=== PATIENT | male | born 1955 | race Caucasian/White ===

== ENCOUNTER 2016-11-25 07:31 | Emergency (ER) | payer BC ==
[2016-11-25] MEDS ORDERED: 0.9 % SODIUM CHLORIDE 1,000 ML BAG IV ONE (07:40)
[2016-11-25] MEDS ORDERED: CLINDAMYCIN 600MG/50ML PREMIX 600 MG in DEXTROSE 1 BAG IV ONE (07:40)
--- NOTE | 2016-11-25 07:53 | Emergency Department Record ---
History of Present Illness - General Chief complaint: ENT Stated complaint: SORE THROAT Time Seen by Provider: 11/25/16 07:40 Source: Patient Mode of Arrival: Ambulatory Limitations: No limitations - History of Present Illness Initial comments: 60 yo male with a history of CLL presents with sore throat for 5 days. He states the pain is more of the left side. He has pain with swallowing. No NVD. No voice changes. He has some pain in the left upper neck as well. 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 Hernandez. Becky Altamirano is his oncologist. His WBC count in 2016 has been a high of 446 and a low off 100. No choking or gagging. No white patches or coating of the throat MD complaint: Sore throat Onset/Timin -: Days(s) (5) Location: Throat Severity: Moderate Severity scale (1-10): 6 Quality: Aching Consistency: Constant Improves with: None Worsens with: None Associated Symptoms: Sore throat - Related Data Home Medications Medication Instructions Recorded Confirmed Last Taken Ibrutinib [Imbruvica] 140 mg PO DAILY 11/25/16 11/25/16 11/24/16 Previous Rx's Medication Instructions Recorded Hydrocodone/Acetaminophen [[place] 0.5 - 1 tab PO TID PRN #15 tab 11/25/16 5mg/325mg] Allergies Allergy/AdvReac Type Severity Reaction Status Date / Time No Known Drug Allergies Allergy Verified 11/25/16 07:41 Travel Screening - Travel/Exposure Within Last 30 Days Have you traveled within the last 30 days?: No Review of Systems Constitutional: Reports: Chills, Night sweats, Other (Chills and some sweats but no fever). Denies: Fever, Malaise, Weakness Eyes: Denies: Eye discharge, Eye pain, Photophobia, Vision change ENT: Reports: As per HPI, Congestion, Throat pain Respiratory: Denies: Cough Cardiovascular: Denies: Chest pain, Palpitations, Syncope Endocrine: Denies: Fatigue Gastrointestinal: Denies: Abdominal pain, Diarrhea, Nausea, Vomiting Genitourinary: Denies: Dysuria, Frequency, Hematuria Musculoskeletal: Denies: Arthralgia, Back pain, Joint swelling, Myalgia, Neck pain Skin: Denies: Change in color, Rash Neurological: Denies: Headache Psychiatric: Denies: Anxiety Hematological/Lymphatic: Denies: Blood Clots, Easy bleeding, Easy bruising, Swollen glands Past Medical History - SOCIAL HISTORY Smoking Status: Never smoker Alcohol Use: None Drug Use: None - RESPIRATORY Hx Respiratory Disorders: Yes Comment:: SOB related to medications - CARDIOVASCULAR Hx Cardio Disorders: No - NEURO Hx Neuro Disorders: No - GI Hx GI Disorders: No - Hx Genitourinary Disorders: No - ENDOCRINE Hx Endocrine Disorders: No - MUSCULOSKELETAL Hx Musculoskeletal Disorders: No - PSYCH Hx Psych Problems: No - HEMATOLOGY/ONCOLOGY Hx Hematology/Oncology Disorders: Yes Hx Cancer: Yes (CLL) Hx Chemotherapy: Yes Hx Radiation Therapy: Yes Family Medical History Any Significant Family History?: No Physical Exam - General General Appearance: Alert, Oriented x3, Cooperative, No acute distress, Other ( Appears comfortable, clear voice, no strider or outward increased work of breathing) Limitations: No limitations - Head Head exam: Atraumatic, Normocephalic, Normal inspection - Eye Eye exam: Normal appearance. negative: Conjunctival injection, Periorbital swelling - ENT ENT exam: Mucous membranes moist, Normal external ear exam, TM's normal bilaterally. negative: Mucous membranes dry, Normal orophraynx Ear exam: Normal external inspection. negative: External canal tenderness Nasal Exam: Normal inspection. negative: Discharge, Sinus tenderness Mouth exam: Normal external inspection, Tongue normal Teeth exam: Normal inspection. negative: Dental caries Throat exam: Tonsillar erythema, Tonsillomegaly, L peritonsillar mass (mild swelling with erythema of the anterior tonsillar pillar, wide open posterior pharynx, normal uvula, no pus or exudate, no thrush), Other (Mild fullness to the left peritonsillar area, no mass effect, normal right side and normal uvula , no exudate, white patches or signs of thrush). negative: Normal inspection, Tonsillar exudate, R peritonsillar mass - Neck Neck exam: Normal inspection, Full ROM, Lymphadenopathy (left anterior cervical) , Tenderness (mild full ROM, soft and supple moves without limitation), Other ( No asymmentry or mass). negative: Meningismus - Respiratory Respiratory exam: Normal lung sounds bilaterally. negative: Respiratory distress - Cardiovascular Cardiovascular Exam: Normal rhythm, Normal heart sounds, Tachycardia - GI/Abdominal GI/Abdominal exam: Soft. negative: Tenderness - Rectal Rectal exam: Deferred - exam: Deferred - Extremities Extremities exam: Normal inspection, Full ROM, Normal capillary refill. negative: Tenderness - Back Back exam: Reports: Normal inspection, Full ROM. Denies: Muscle spasm, Rash noted, Tenderness - Neurological Neurological exam: Alert, Normal gait, Oriented X3, Reflexes normal - Psychiatric Psychiatric exam: Normal affect, Normal mood - Skin Skin exam: Dry, Intact, Normal color, Warm Course Vital Signs 11/25/16 07:35 Temperature 98.6 F Pulse Rate 123 H Respiratory 18 Rate Blood Pressure 128/91 Pulse Ox 95 - Reevaluation(s) Reevaluation #1: The patient was seen and examined He has mild fullness of the left peritonsillar area No pus, no definite visible abscess, no thrush, no ulcerations Labs, antibiotics and CT ordered given his risk of immune suppression 11/25/16 07:46 11/25/16 11:06 Reevaluation #2: The labs were reviewed WBC is 131 down from 134 on previous (He was 200-446 in the late summer into the fall) 11/25/16 08:37 The patient was updated on his labs 11/25/16 08:40 Reevaluation #3: CT scan reviewed. No abscess. Fullness noted in vallecula and pyriform sinus that could represent mucosal debris, Follow up imaging recommended, mixed changes in the lymph nodes. 11/25/16 09:04 The results were discussed with the patient. I offered further observation in the hospital for fluids and antibiotics through the IV. He declined. He has a clear voice, appears very comfortable. I discussed again with his immune compromised state his treatment and resolution should be monitored very closely. He understands this and my offer for continued monitoring. He will return or seek a recheck if any concerns and completely understands his risk. He is comfortable, no signs of current or impeding airway issues I simply explained to him this would be an option for him. 11/25/16 09:09 11/25/16 09:19 Reevaluation #4: Rx for clindamycin 450mg QID for 7 days called into [facility]. 11/25/16 09:26 Reevaluation #5: Vitals reviewed and improved at [place] 11/25/16 09:44 Medical Decision Making - Lab Data Result diagrams: 11/25/16 07:55 11/25/16 07:55 Disposition Disposition: Discharge (pharyngitis) Clinical Impression: Pharyngitis Qualifiers: Pharyngitis/tonsillitis etiology: unspecified etiology Qualified Code(s): J02.9 - Acute pharyngitis, unspecified Disposition: Home, Self-Care Condition: (1) Good Instructions: Pharyngitis (ED) Additional Instructions: Immediately return or seek medical attention if worse in any way Take the Clindamycin 4 times daily as directed. Call your doctor Sunday for a recheck Radiology recommends follow up as well to ensure complete resolution of today's CT findings. Prescriptions: Hydrocodone/Acetaminophen [[place] 5mg/325mg] 0.5 - 1 tab PO TID PRN #15 tab PRN Reason: Pain - General Forms: Patient Portal Access Time of Disposition: 09:22
[2016-11-25 07:58] LABS: HEMATOCRIT 44.9 % (42.0-52.0); HEMOGLOBIN 14.4 gm/dl (14.0-18.0); MEAN CELL VOLUME 90.9 fl (81-97); MEAN CORPUSCULAR HEMOGLOBIN 29.1 pg (27-33); MEAN CORPUSCULAR HGB CONC 32.1 g/dl (32-36); MEAN PLATELET VOLUME 11.1 fl (7.4-10.4); PLATELET COUNT 314 K/uL (130-400); RED BLOOD COUNT 4.94 M/uL (4.40-5.70); RED CELL DISTRIBUTION WIDTH 13.1 % (11.5-14.5)
[2016-11-25 08:10] LABS: ANION GAP 14.1 (7-16); BLOOD UREA NITROGEN 13 mg/dL (9-20); CARBON DIOXIDE 25.9 mmol/L (22-30); CREATININE 0.9 mg/dL (0.66-1.25); EST GLOMERULAR FILTRATION RATE > 60 ml/min; GLUCOSE,RANDOM 122 mg/dL (70-110)
[2016-11-25] MEDS ORDERED: KETOROLAC 30 MG/ML VIAL IVP ONE (08:16)
[2016-11-25 08:30] LABS: WHITE BLOOD COUNT W/O DIFF 131.9 K/uL (4.2-12.2)
--- NOTE | 2016-11-29 08:07 | CT SCAN REPORT ---
EXAM: CT OF THE NECK SOFT TISSUE WITH CONTRAST HISTORY: SORE THROAT FOR FIVE DAYS. HISTORY OF CHRONIC LYMPHOCYTIC LEUKEMIA. TECHNIQUE: Routine post contrast CT images of the neck were obtained following intravenous administration of 100 ml of Omnipaque 300. Comparison: 04/05/16. FINDINGS: There is some soft tissue fullness within the region of the left vallecula and left piriform sinus of uncertain significance, not clearly seen on previous examination. This could relate to debris. Well defined rim enhancing fluid collection not present to suggest abscess. Underlying mass difficult to exclude. Pharyngeal and parapharyngeal soft tissues otherwise unremarkable. There are mildly prominent lymph nodes bilaterally. This includes 14 mm short axis bilateral jugulodigastric lymph nodes and a 10 mm left level 2 lymph node. Bilateral level 5 lymph nodes have decreased. The thyroid, submandibular, and parotid glands are unremarkable. The great vessels of the neck enhance normally with contrast. Mild atherosclerotic calcification right proximal ICA. Moderate mucosal thickening left maxillary sinus, similar. The visualized lung apices are clear. Similar lytic focus within the superior aspect T1 vertebral body. Degenerative changes atlantodental joint. IMPRESSION: 1. THERE IS SOFT TISSUE WITHIN THE REGION OF THE LEFT VALLECULA AND LEFT PIRIFORM SINUS OF UNCERTAIN SIGNIFICANCE NOT PRESENT ON THE PREVIOUS EXAMINATION. THIS COULD RELATE TO DEBRIS THOUGH MASS OR OTHER INFLAMMATORY PROCESS NOT EXCLUDED. FOLLOW-UP IMAGING RECOMMENDED. 2. MIXED INTERVAL CHANGES INVOLVING CERVICAL LYMPH NODES. INTERVAL INCREASE MOST NOTABLY WITHIN THE BILATERAL JUGULODIGASTRIC REGION AND LEFT LEVEL 2 REGION. INTERVAL DECREASE OF BILATERAL LEVEL 5 LYMPH NODES. 3. SIMILAR LYTIC FOCUS AT THE T1 VERTEBRAL BODY. JOB NUMBER: [id number] MTDD
== END 2016-11-25 10:05 | disposition home or self-care (01) ==
LOC: ER 07:31
DX: J02.9 Acute pharyngitis, unspecified (principal); M54.2 Cervicalgia; J35.1 Hypertrophy of tonsils; D72.829 Elevated white blood cell count, unspecified; Z85.6 Personal history of leukemia
CPT/HCPCS: 99284 ×2; 96365; 96375; 80048; 87880; 85027; 70491; Q9967; J1885; J7030